=== PATIENT | female | born 1980 | race Caucasian/White ===

== ENCOUNTER 2020-11-02 16:58 | Inpatient (IN) | payer OTHER ==
[~2020-11-02] VITALS: Ht 170.2 cm; Wt 99.3 kg
[~2020-11-02 16:58] MED LIST: DIFLUCAN150 MG PO; LEVAQUIN750 MG PO; TORADOL 10 MG T10 MG PO
[2020-11-02 17:44] LABS: HEMOGLOBIN 11.3 gm/dl (12.3-15.3); RED BLOOD COUNT 3.57 M/UL (4.00-5.10); WHITE BLOOD COUNT 14.8 K/UL (4.5-11.0)
[2020-11-02] MEDS ORDERED: PRILOSEC OTC20 MG PO (18:53)
[2020-11-02] MEDS ORDERED: MACROBID 100 M100 MG PO (18:54)
[2020-11-02] MEDS ORDERED: ZOFRAN4 MG PO (18:55)
[2020-11-04 06:14] LABS: HEMOGLOBIN 10.7 gm/dl (12.3-15.3)
== END 2020-11-04 17:58 | disposition home or self-care (01) | DRG 807 ==
LOC: GENOP 16:58 → OB 17:10
PROVIDERS: ADMIT Obstetrics & Gynecology
PROC: 4A1HX4Z Monitoring of Products of Conception, Cardiac Electrical Activity, External Approach (ICD-10-PCS; 2020-11-02)
PROC: 10907ZC Drainage of Amniotic Fluid, Therapeutic from Products of Conception, Via Natural or Artificial Opening (ICD-10-PCS; principal; 2020-11-03)
PROC: 10E0XZZ Delivery of Products of Conception, External Approach (ICD-10-PCS; 2020-11-03)
PROC: 0HQ9XZZ Repair Perineum Skin, External Approach (ICD-10-PCS; 2020-11-03)
DX: O13.4 Gestational [pregnancy-induced] hypertension without significant proteinuria, complicating childbirth (principal); Z37.0 Single live birth; Z3A.37 37 weeks gestation of pregnancy; O70.0 First degree perineal laceration during delivery; Z20.828 Contact with and (suspected) exposure to other viral communicable diseases
CPT/HCPCS: 36415; 51702; 59025; 81001; 82800; 85014; 85018; 85025; J2590; J7120; U0003

== ENCOUNTER 2022-01-22 23:16 | Observation (INO) | payer OTHER ==
[~2022-01-22] VITALS: Ht 170.2 cm; Wt 95.3 kg
[~2022-01-22 23:16] MED LIST changes: +MACROBID 100 M100 MG PO; +PRILOSEC OTC20 MG PO; +ZOFRAN4 MG PO
[2022-01-23 01:09] LABS: HEMOGLOBIN 14.5 gm/dl (12.3-15.3); RED BLOOD COUNT 4.32 M/UL (4.00-5.10); WHITE BLOOD COUNT 17.5 K/UL (4.5-11.0)
[2022-01-23 01:31] LABS: BUN/CREATININE RATIO 18 (0-10)
--- NOTE | 2022-01-23 10:04 | NUR ---
PATIENT PART 2 COMPLETED BEFORE PATIENT WENT TO OR, POST OP SHIFT ASSESSMENT COMPLETED AFTER RETURNED.
[2022-01-23] MEDS ORDERED: HYDROCODON-ACE1 EAC4 PO (16:24)
== END 2022-01-23 17:05 | disposition home or self-care (01) ==
LOC: ER1 23:16 → CDU 01-23 04:00 → MED SURG 4 01-23 05:43
PROVIDERS: Student in an Organized Health Care Education/Training Program; ADMIT Surgery
DX: K35.33 Acute appendicitis with perforation, localized peritonitis, and gangrene, with abscess (principal); Z20.822 Contact with and (suspected) exposure to COVID-19
CPT/HCPCS: 80053; 81001; 82550; 82553; 83690; 84484; 84703; 85025; 93005; 96374; 96375; 96376; 99285; G0378; J1100; J1170; J1885; J2001; J2250; J2270; J2405; J2543; J2704; J3010; J7030; J7120; Q9967; U0002